=== PATIENT | female | born 1955 ===

== ENCOUNTER 2016-08-30 07:21 | Day surgery (SDC) | payer OTHER ==
[~2016-08-30] VITALS: Ht 154.9 cm; Wt 65.0 kg
[~2016-08-30 07:21] MED LIST: ALBU8.5H2 INHALATION; ASPI-973 PO; CETI-263 PO; DIPH25CA6 PO; ESTR1PAT TD; ESTR1VAG VG; KRIL1CAP10 PO; METO-272 PO; MULT-1007 PO; NAPR220C11 PO; OMEP20CA11 PO; RISE35TA PO; RIZA10TA23 PO; Sodium Chloride LOK Flush 10 mL Syringe IV PRN; TRAZ-115 PO; fentaNYL-PF 50 mCg/mL 2 mL Inj IVPUSH PRN
[2016-08-30] MEDS ORDERED: SACC250C9 PO (07:37)
[2016-08-30 07:39] VITALS: BP 127/80; PULSE 92; O2SAT 92
[2016-08-30] MEDS: 0.9% Sodium Chloride 1,000 ML IV SCH ×2 (08:07→08:33)
[2016-08-30 08:46] VITALS: BP 123/70; PULSE 74; RESP 12; O2SAT 96
[2016-08-30 08:55] VITALS: BP 105/64; PULSE 70; RESP 12; O2SAT 97
[2016-08-30 09:08] VITALS: BP 118/85; PULSE 75; RESP 14; O2SAT 98
--- NOTE | 2016-08-30 10:33 | ENDO ---
[address] [address] ENDOSCOPY PROCEDURE PATIENT: MARK BLUM : 1955 MR#: [id number] ADMIT: 08/30/2016 JOB ID: [id number] DATE: 08/30/2016 PRIMARY PROVIDER: Nancy Minaya MD PROCEDURE: Colonoscopy with cold forceps polypectomy. INDICATIONS: A 60-year-old female with a family history of colon cancer in her grandmother. No first-degree relatives with colon cancer. She has a personal history of hyperplastic colon polyps. She was advised to proceed with repeat surveillance examination. EQUIPMENT: CPM Braxis H180-AL. SEDATION: 5 mg Versed and 150 mcg fentanyl. COMPLICATIONS: None identified. BOWEL PREP: Excellent. PROCEDURE INFO: After the risks and benefits were explained, written and verbal informed consent was obtained. The patient was brought into the endoscopy suite and placed into the left lateral decubitus position. Sedation was achieved using the above stated medications with the addition of oxygen via nasal cannula. A digital rectal examination was accomplished. Apart from some mild internal and external nonbleeding, nonthrombosed hemorrhoids. No other pathology was appreciated. The scope was introduced into the rectum and advanced under direct visualization to the cecum as identified by the appendiceal orifice and ileocecal valve. The scope was slowly withdrawn to carefully examine the mucosa for any defects or lesions. Multiple direct views were made through the dentate line for exclusion of pathology. The colon was decompressed. The scope removed from the patient who tolerated the procedure well. FINDINGS: In the cecum there was an approximately 4-5 mm polyp removed with cold forceps. No other significant pathology was appreciated throughout. The patient had a slightly redundant colon and getting past the splenic flexure was a little challenging during navigation. ENDOSCOPIC DIAGNOSES: 1. Diminutive cecal polyp. 2. Hemorrhoids. RECOMMENDATIONS: 1. Await histopathology. 2. If this is an adenomatous polyp, repeat colonoscopy 5 years. If this is hyperplastic then it would be reasonable to repeat colonoscopy in 10 years' time, sooner as needed should symptoms warrant.
--- NOTE | 2016-08-31 13:18 | PATH ---
SURGICAL PATHOLOGY Attending Physician:Zheng Ramirez CASE STATUS: Signed Out PATIENT NAME: MARK BLUM PID: [id number] : 1955 DATE COLLECTED:08/30/2016 16:20 SPECIMEN: Colon, Biopsy CLINICAL HISTORY: A: CECAL POLYP FINAL DIAGNOSIS: 1.CECAL POLYP: TUBULAR ADENOMA. ICD10 CODE D12.0 GROSS DESCRIPTION: The specimen is received in one formalin filled container labeled with the patient's name, sublabeled "cecal polyp" and consists of a 0.4 x 0.3 x 0.2 CM portion of tissue which is entirely submitted in one cassette. 08/30/2016 DAC MICRO DESCRIPTION: See diagnosis. ICD-9 CODES: CPT CODES: 1: 73288 Electronically Signed Out Lazaro Wells MD [facility] [address], [place] [address] Technical component performed at [facility], [facility] [address], [address]
== END 2016-08-30 23:59 | disposition home or self-care (01) ==
LOC: END 07:21
PROVIDERS: ATTEND Internal Medicine Gastroenterology
DX: Z12.11 Encounter for screening for malignant neoplasm of colon (principal); D12.0 Benign neoplasm of cecum; K64.8 Other hemorrhoids; Z86.010 Personal history of colon polyps; Z80.0 Family history of malignant neoplasm of digestive organs; K21.9 Gastro-esophageal reflux disease without esophagitis; I10 Essential (primary) hypertension; G43.909 Migraine, unspecified, not intractable, without status migrainosus; J45.909 Unspecified asthma, uncomplicated; M81.0 Age-related osteoporosis without current pathological fracture; Z79.82 Long term (current) use of aspirin; Z79.51 Long term (current) use of inhaled steroids
CPT/HCPCS: 45380; J2250; J7030